=== PATIENT | female | born 1950 | race Caucasian/White ===

== ENCOUNTER 2020-06-22 17:50 | Emergency (ER) | payer MEDICARE, BC, SELFPAY ==
--- NOTE | ~2020-06-22 | XR_ITS ---
XR shoulder LT min 2V 06/22/2020 18:28 Indication: Left shoulder pain after fall Procedure: 3 views left shoulder Comparison: No prior studies for comparison. Findings: There is a comminuted nondisplaced left humeral head/neck fracture. Glenohumeral joint and anatomic alignment. Acromioclavicular joint and anatomic alignment. No other fracture is identified. Impression: 1: Comminuted nondisplaced left humeral head/neck fracture. Reviewed, dictated and finalized at location A. OPERATOR Impression: 1: Comminuted nondisplaced left humeral head/neck fracture.
--- NOTE | ~2020-06-22 | CT_ITS ---
EXAMINATION: CT shoulder LT wo con DATE: 06/22/2020 19:15 INDICATION: Left humerus fracture TECHNIQUE: Computed tomography (CT) of the left shoulder was performed without intravenous contrast. The dose-length product was 401.16 mGy-cm. Automated exposure control and iterative reconstruction te chnique were employed. COMPARISON: None FINDINGS: There is a comminuted left humeral head/neck fracture with anterior-medial displacement and valgus-posterior angulation. Acromioclavicular joint within normal limits. Glenoid process within no rmal limits. Visualized lung parenchyma is unremarkable. IMPRESSION: 1. Comminuted, displaced and angulated left humeral head/neck fracture. Reviewed, dictated and finalized at location A. TOP PUBLISHING SPECIALIST
[2020-06-22 17:58] VITALS: BP 138/69; PULSE 89; RESP 20; TEMP 36.4; O2SAT 99
--- NOTE | 2020-06-22 18:14 | ED.FALL ---
HPI - Fall General Chief Complaint: Fall Stated Complaint: fell down six steps, right shoulder pain Time Seen by Provider: 06/22/20 18:02 Source: patient Mode of arrival: ambulatory Limitations: no limitations History of Present Illness HPI Narrative: This is a 70 year old female that presents to the ER after a fall today with left shoulder pain. Reports she was carrying her trash bag down the steps and tripped. Reports falling down about 4-5 steps. Reports landing on her left shoulder. Denies hitting her head or loss of consciousness. Reports since she has had pain in the left shoulder. Reports decreased ROM in the shoulder due to pain. Denies prodromal symptoms, other injuries, chest pain, shortness of breath, vision changes, vomiting, numbness, weakness, neck pain or back pain. Related Data Allergies Allergy/AdvReac Type Severity Reaction Status Date / Time No Known Allergies Allergy Verified 06/22/20 18:01 Review of Systems Review of Systems: Narrative: CONSTITUTIONAL: Denies fever EYES: Denies visual changes CARDIOVASCULAR: Denies chest pain RESPIRATORY: Denies dyspnea. GASTROINTESTINAL: Denies vomiting MUSCULOSKELETAL: Reports joint pain and myalgia. Denies back pain NEUROLOGIC: Denies headache, numbness, or weakness. All systems reviewed & are unremarkable except as noted in HPI and below PMFSH Past Medical History Medical History (Updated 06/22/20 @ 20:31 by Audelia Guo PA-C) History of gastroesophageal reflux (GERD) History of hyperlipidemia History of hypertension Social History Social History Gender identity (if verbalized by the patient): Female Exam Narrative: Exam Narrative: GENERAL: Well-appearing, well-nourished, and in no acute distress. HEAD: Normocephalic, atraumatic. EYES: PERRLA and EOMI. ENT: Nares clear, no rhinorrhea or epistaxis. Mucous membranes moist. Oropharynx without tonsillar hypertrophy exudate or other lesions. Bilateral TMs pearly maddox non-bulging NECK: Supple. No adenopathy or masses. No midline cervical spine tenderness CHEST: Clear to auscultation. No respiratory distress. No wheezes rales or rhonchi. No chest wall tenderness HEART: Regular rate and rhythm. No murmur heard. Normal peripheral pulses. BACK: No midline thoracic or lumbar spine tenderness EXTREMITIES: Normal range of motion, except decreased ROM in the left shoulder due to pain. No edema or obvious deformity. Normal radial pulses. Normal sensation SKIN: Warm, dry, no rash. NEURO: No focal deficits. Alert and oriented x3. Cranial nerves II through XII grossly intact. Normal gait PSYCH: Normal mood and affect Course Consultations Consultation #1: Spoke with Dr. Diaz about patient and workup. Would CT scan of the shoulder ordered. Patient will be placed in a shoulder immobilizer Date: 06/22/20 Vital Signs Vital signs: Vital Signs Temperature 97.5 F L 06/22/20 17:58 Pulse Rate 89 06/22/20 17:58 Respiratory Rate 20 06/22/20 17:58 Blood Pressure 138/69 06/22/20 17:58 Pulse Oximetry 99 06/22/20 17:58 Temperature 97.5 F L 06/22/20 17:58 Pulse Rate 89 06/22/20 17:58 Respiratory Rate 20 06/22/20 17:58 Blood Pressure 138/69 06/22/20 17:58 Pulse Oximetry 99 06/22/20 17:58 Procedures Orthopedic Splinting/Casting Injury #1: Splinting/Casting Date: 06/22/20 Side: left Upper Extremity Injury Location: shoulder Upper Extremity Immobilizer: sling/shoulder immobilizer Pre-Formed: shoulder immob/universal Pre-Procedure Neuro Vascular Exam: normal Post-Procedure Neuro Vascular Exam: normal MDM - Fall MDM Narrative Medical decision making narrative: Patient presents the emergency department after falling down a couple of stairs with left shoulder pain. Patient is neurologically intact. Denied any prodromal symptoms. No midline cervical spine tenderness. Ambulates with a steady gait. Left shoulder x-ray shows a comminuted nondisp
[2020-06-22] MEDS: HYDROcodone/acetaminophen (*CRX) 5-325 MG TABLET 1 TAB PO (18:39)
--- NOTE | 2020-06-22 18:45 | PC.NURSE ---
patient given pain medication. xray resulted. shows fracture of left humerus. patient updated. waiting for further orders vs disposition from provider. family member in room.
[2020-06-22 20:25] VITALS: BP 152/90; PULSE 78; RESP 18; O2SAT 98
--- NOTE | 2020-06-22 20:33 | PC.NURSE ---
patient has left shoulder immobilizer on. son here. waiting for discharge papers from provider.
== END 2020-06-22 20:44 | disposition home or self-care (01) ==
PROVIDERS: Emergency Provider Emergency Medicine
DX: S42.292A Other displaced fracture of upper end of left humerus, initial encounter for closed fracture (principal); K21.9 Gastro-esophageal reflux disease without esophagitis; E78.5 Hyperlipidemia, unspecified; I10 Essential (primary) hypertension; W10.9XXA Fall (on) (from) unspecified stairs and steps, initial encounter
CPT/HCPCS: 73030; 73200; 99284; A9270